=== PATIENT | female | born 1960 | race African-American/Black ===

== ENCOUNTER 2022-09-26 00:55 | Day surgery (SDC) | payer BC, SELFPAY ==
[2022-09-12 11:35] VITALS: BMI 29.7
[2022-09-26 07:40] VITALS: BP 159/76; PULSE 16; RESP 16; TEMP 35.8; O2SAT 100; BMI 30.7
[2022-09-26] MEDS: LACTATED RINGERS 1,000 ML 150 ML IV CONT (07:56)
--- NOTE | 2022-09-26 08:16 | PM.HPGS ---
History of Present Illness History of Present Illness Consent: Risks, benefits, and alternatives have been discussed and questions answered. Patient agrees to proceed with procedure. Chief complaint: neoplasm screening Narrative: Estefany Dodson is a 62 year old female Presents for screening colonoscopy. Patient's current weight appetite are normal. She does have a prior history of colon polyps removed 2012. Recent colonoscopy 2018 was unremarkable. Family history noncontributory. Patient does report a tendency towards constipation. She does take Metamucil daily. She has occasional spot bleeding with wiping. Attributed to hemorrhoids. Patient presents today for neoplasia screening colonoscopy. Review of Systems Review of Systems: Review of systems noncontributory. [facility] Past Medical History Medical History Asthma exercise induced. Hypertension Trigger thumb, left thumb Surgical History Surgical History H/O: hysterectomy still has ovaries History of cardiac cath Family History Family History Mother Hypertension Family history of osteoarthritis Father Acute myocardial infarction Patient's father is Hypertension Family history of coronary artery disease, Onset Age: 198 Other Family history of malignant neoplasm of breast Social History Social History Smoking status: Never smoker Second hand tobacco smoke exposure: No Alcohol intake: never Substance use type: does not use Living arrangements: with family Gender identity (if verbalized by the patient): Female Spiritual care concerns: Yes (Alevism) Agree to blood products: No Meds Home Medications and Allergies Home Medications Medication Instructions Recorded Confirmed Type lysine 500 mg tablet 500 mg PO DAILY 09/29/20 09/26/22 History magnesium 200 mg tablet 200 mg PO DAILY 09/29/20 09/26/22 History multivitamin (Daily Multi-Vitamin 1 tablet PO DAILY 09/29/20 09/26/22 History tablet) amlodipine 10 mg tablet 10 mg PO DAILY 04/15/21 09/26/22 History aspirin 81 mg tablet,delayed 81 mg PO DAILY 04/15/21 09/26/22 History release (Adult Aspirin Regimen) hydrochlorothiazide 25 mg tablet 25 mg PO DAILY 04/15/21 09/26/22 History metoprolol succinate 25 mg 25 mg PO DAILY 04/15/21 09/26/22 History tablet,extended release 24 hr valsartan 320 mg tablet 320 mg PO DAILY 04/15/21 09/26/22 History rosuvastatin 5 mg tablet 5 mg PO 3XW 09/12/22 09/26/22 History Allergies Allergy/AdvReac Type Severity Reaction Status Date / Time No Known Allergies Allergy Verified 09/26/22 07:44 Vital Signs Vital Signs - 24 hr 09/26/22 07:40 Temperature 96.4 F L Pulse Rate 16 L Respiratory Rate 16 Blood Pressure 159/76 H Pulse Oximetry 100 Oxygen Delivery Room Air Exam Narrative: Physical exam reveals patient to be alert. Vital signs stable. HEENT exam is unremarkable. Patient is anicteric. Lungs are clear to auscultation and percussion. Heart is without murmur or extra sounds. Abdomen bowel sounds are present soft nontender with no hepatosplenomegaly. Digital external rectal exam is normal. Assessment and Plan Assessment and plan (1) Encounter for screening colonoscopy: Code(s): Z12.11 - Encounter for screening for malignant neoplasm of colon Status: Acute Assessment and Plan: Patient presents today for screening colonoscopy. She does have a distant history of colon polyps. A tendency towards constipation. Plan for patient continue Metamucil daily. She may need MiraLax be taken as needed. Is often is daily as necessary. Further recommendations may be given after endoscopy.
--- NOTE | 2022-09-26 08:32 | WPDANESEPPF ---
Anes - Initial Pre Proc Eval Procedure: Operation Date: 09/26/22 09:00 Proposed Procedures p Screening Colonoscopy - Inderjit Johnson MD Date/Time: 09/26/22 08:32 Surgeon: Inderjit Johnson MD Pre Op Diagnosis: neoplasm screening Patient Data Age: 62 Gender: F Height: 1.57 m Weight: 76.2 kg Last Vital Signs Temp 96.4 F L 09/26/22 07:40 Pulse 16 L 09/26/22 07:40 Resp 16 09/26/22 07:40 BP 159/76 H 09/26/22 07:40 Pulse Ox 100 09/26/22 07:40 O2 Del Method Room Air 09/26/22 07:40 Allergies Allergy/AdvReac Type Severity Reaction Status Date / Time No Known Allergies Allergy Verified 09/26/22 07:44 Home Medications Medication Instructions Recorded Confirmed Type lysine 500 mg tablet 500 mg PO DAILY 09/29/20 09/26/22 History magnesium 200 mg tablet 200 mg PO DAILY 09/29/20 09/26/22 History multivitamin (Daily Multi-Vitamin 1 tablet PO DAILY 09/29/20 09/26/22 History tablet) amlodipine 10 mg tablet 10 mg PO DAILY 04/15/21 09/26/22 History aspirin 81 mg tablet,delayed 81 mg PO DAILY 04/15/21 09/26/22 History release (Adult Aspirin Regimen) hydrochlorothiazide 25 mg tablet 25 mg PO DAILY 04/15/21 09/26/22 History metoprolol succinate 25 mg 25 mg PO DAILY 04/15/21 09/26/22 History tablet,extended release 24 hr valsartan 320 mg tablet 320 mg PO DAILY 04/15/21 09/26/22 History rosuvastatin 5 mg tablet 5 mg PO 3XW 09/12/22 09/26/22 History Patient hx anesthesia problems: none Family hx anesthesia problems: none Results Review: All pre-operative results and documents have been reviewed as part of the pre-operative evaluation. [facility] Past Medical History Medical History Asthma exercise induced. Hypertension Trigger thumb, left thumb Surgical History Surgical History H/O: hysterectomy still has ovaries History of cardiac cath Family History Family History Mother Hypertension Family history of osteoarthritis Father Acute myocardial infarction Patient's father is Hypertension Family history of coronary artery disease, Onset Age: 198 Other Family history of malignant neoplasm of breast Social History Social History Smoking status: Never smoker Second hand tobacco smoke exposure: No Alcohol intake: never Substance use type: does not use Living arrangements: with family Gender identity (if verbalized by the patient): Female Spiritual care concerns: Yes (Lutheran) Agree to blood products: No Anes - Eval Final PreProcedure Day of Procedure 09/26/22 08:32 Patient weight: obese Heart: regular rate and rhythm Lungs: clear to auscultation Airway: Mallampati scale class II Neurological: alert and oriented Last oral intake: >/= 8 hours ASA classification: II Emergent: no Anesthetic plan: proceed Anesthesia type and monitoring: general GIVS and standard monitoring Results Review: All pre-operative results and documents have been reviewed as part of the pre-operative evaluation. Informed Consent: The patient's anesthetic plan and its attendant risks and benefits were discussed with the patient/family/POA. Questions were solicited and answers provided to the satisfaction of the patient/family/POA.
[2022-09-26 09:09] VITALS: BP 107/61; PULSE 66; RESP 16; O2SAT 99
[2022-09-26 09:19] VITALS: BP 141/82; PULSE 64; RESP 20; O2SAT 100
[2022-09-26 09:29] VITALS: BP 136/78; PULSE 58; RESP 18; O2SAT 100
== END 2022-09-26 09:37 | disposition home or self-care (01) ==
PROVIDERS: PCP Physician Assistant; Visit Provider Internal Medicine Gastroenterology
PROC: 0DJD8ZZ Inspection of Lower Intestinal Tract, Via Natural or Artificial Opening Endoscopic (ICD-10-PCS; CPT 45378; principal; 2022-09-26 09:00)
DX: Z12.11 Encounter for screening for malignant neoplasm of colon (principal); K64.8 Other hemorrhoids; I10 Essential (primary) hypertension; E66.9 Obesity, unspecified; Z68.30 Body mass index [BMI] 30.0-30.9, adult; Z79.82 Long term (current) use of aspirin
CPT/HCPCS: 45378; J2704; J7120

== ENCOUNTER 2024-03-26 10:12 | Outpatient (CLI) | payer BC, SELFPAY ==
--- NOTE | ~2024-03-26 | XR_ITS ---
Clinical Indication: Shortness of breath PA and lateral views of the chest: Comparison: None Findings: The lungs are clear, without evidence of focal consolidation or pleural effusion. Cardiome diastinal silhouette is within normal limits. Bones and soft tissues are unremarkable. Impression: Normal chest. Reviewed, dictated and finalized at [facility] [place]. Impression: Normal chest.
== END 2024-03-26 10:13 | disposition home or self-care (01) ==
PROVIDERS: PCP Nurse Practitioner Family; Visit Provider Physician Assistant
DX: R06.02 Shortness of breath (principal); R07.89 Other chest pain
CPT/HCPCS: 71046

== ENCOUNTER 2024-04-04 12:40 | Outpatient (CLI) | payer BC, SELFPAY ==
--- NOTE | 2024-04-05 08:53 | WPDPFTINT ---
PFT Procedure Performed PFT Procedure Performed Spirometry with Pre/Post Bronchodilator Plethysmography (Lung Vol) Diffusing Cap (DLCO) Flow Vol Loop PFT Interpretation Lung volumes were measured using the body plethysmography method. The diminished ERV is associated with obesity, while the remaining lung volumes are unremarkable. Spirometry showed normal expiratory flow rates and a normal FEV1/FVC ratio of 72%. After bronchodilator administration, there was a significant increase in FEV1. Lung diffusion capacity is within the normal range at 90% predicted. The flow-volume loop is unremarkable. Compared to the previous study in 2016, the post-bronchodilator FVC and FEV1 remain essentially unchanged, as does the lung diffusion capacity. Despite the absence of decreases in the main expiratory flow indices, a significant response to bronchodilators may suggest underlying obstructive airway disease. Clinical correlation is advised. Impression: Spirometry, lung volumes, and lung diffusion capacity all within the normal range.
--- NOTE | 2024-04-05 09:01 | WPDSIXMINUTE ---
Six Minute Walk Procedure Procedure Performed Pulmonary Stress Test (6 min walk) Six Minute Walk Six Minute Walk: This 6 minute walk test was carried out with the patient breathing ambient air. The baseline pre walk oxyhemoglobin saturation was 100%. The patient walked 488 m with no stops during testing. During the walk the oxyhemoglobin saturation remained around 98% to 99%. Impression: No evidence of oxyhemoglobin desaturation on this testing.
== END 2024-04-04 12:41 | disposition home or self-care (01) ==
LOC: ANHPFT 12:40
PROVIDERS: PCP Nurse Practitioner Family; Visit Provider Physician Assistant
DX: R07.89 Other chest pain (principal)
CPT/HCPCS: 94060; 94618; 94726; 94729